=== PATIENT | female | born 2000 | race Caucasian/White ===

== ENCOUNTER 2023-01-20 22:25 | Emergency (ER) | payer OTHER, SELFPAY ==
[2023-01-20 22:27] VITALS: BP 126/76; PULSE 93; RESP 20; TEMP 36.6; O2SAT 100
[2023-01-20] MEDS: TETANUS,DIPHTHERIA,AC PERTUSSIS ADULT (0.5 ML) BOOSTRIX IM (23:18)
--- NOTE | 2023-01-21 00:50 | ED.WOUNDLAC ---
HPI - Wound/Laceration General Chief Complaint: Wound/Laceration Stated Complaint: I dropped a knife on my foot Time Seen by Provider: 01/20/23 22:42 Source: patient Mode of arrival: ambulatory Limitations: no limitations History of Present Illness HPI narrative: Patient is a 22-year-old female who presents to the ED with report of a laceration to her right foot between her second and third toes. Patient reports she was loading dishes into a [employer] tonight and dropped a knife. The knife dropped onto her R foot. She sustained a laceration. She denies any other injuries. Denies significant pain. Denies numbness or tingling. Tetanus unknown. Related Data Allergies Allergy/AdvReac Type Severity Reaction Status Date / Time No Known Allergies Allergy Verified 01/20/23 22:30 Review of Systems Review of Systems: CONSTITUTIONAL: Denies fever, chills, or sweats. SKIN: See HPI. MUSCULOSKELETAL: See HPI. NEUROLOGIC: Denies tingling, numbness, or weakness. All systems reviewed & are unremarkable except as noted in HPI and below Exam Narrative: GENERAL: Well appearing, well-nourished, non-toxic, in no acute distress. HEAD: Normocephalic, atraumatic. NECK: Supple. No adenopathy, no masses. RESPIRATORY: Airway patent, respirations nonlabored. CARDIOVASCULAR: Regular rate and rhythm without murmurs, rubs, or gallops. Pedal pulses 2+ and equal bilaterally. MUSCULOSKELETAL: Moves all extremities. 1cm horizontal linear laceration to R dorsal foot in proximal webspace between 2nd and 3rd toes. No active bleeding. Sensation intact. No tenderness throughout toes. SKIN: Warm, dry, normal color. No rashes. NEURO: A&O X3. Speech clear. Cranial nerves II-XII grossly intact. Steady gait. No ataxic movements. PSYCHIATRIC: Appropriate mood and affect. Normal interaction. Course Vital Signs Vital signs: Vital Signs Temperature 98 F 01/20/23 22:27 Pulse Rate 93 01/20/23 22:27 Respiratory Rate 20 01/20/23 22:27 Blood Pressure 126/76 01/20/23 22:27 Pulse Oximetry 100 01/20/23 22:27 Oxygen Delivery Room Air 01/20/23 22:27 Temperature 98 F 01/20/23 22:27 Pulse Rate 93 01/20/23 22:27 Respiratory Rate 20 01/20/23 22:27 Blood Pressure 126/76 01/20/23 22:27 Pulse Oximetry 100 01/20/23 22:27 Oxygen Delivery Room Air 01/20/23 22:27 Procedures Laceration Laceration 1: Date: 01/21/23 Time: 01:00 Site: lower extremity (foot) Side (If applicable): right Size (cm): 1 Description: linear Depth: simple, single layer Local Anesthetic: lidocaine 1% Amount of anesthesia used (mL): 3 Pre-repair: wound explored, irrigated and irrigated extensively ====== Skin Level ====== Skin layer closed with: nylon Size (cm): 5-0 Number of sutures: 3 Technique: simple, interrupted ====== Subcutaneous Layer ====== ====== Muscle Layer ====== ====== Tendon Layer ====== MDM - Wound/Laceration MDM Narrative Medical decision making narrative: Laceration repaired without complications. Tetanus updated. Patient given wound care instructions and reasons to return. Medical Records Attestation: I reviewed the patient's medical records. Discharge Plan Discharge Clinical Impression: Laceration of right foot Qualifiers: Encounter type: initial encounter Qualified Code(s): S91.311A - Laceration without foreign body, right foot, initial encounter Patient Disposition: Home, Self-Care Condition: Stable Instructions: Antibiotic Form, Care For Your Stitches (ED), Laceration (ED) Additional Instructions: Return to the ED or visit an urgent care or your PCP for follow-up and wound check/suture removal in 10 to 14 days. Keep the wound as dry as possible for 24 hours. You may remove the bandage after 24 hours and wash with simple soap and water, but do not scrub. Re-bandage if wearing shoes. Retu
[2023-01-21] MEDS: LIDOCAINE HCL 1% LOCAL INJ 10 ML VIAL 5 ML INFILTRATE (01:50)
[2023-01-21 02:14] VITALS: BP 111/72; PULSE 71; RESP 15; O2SAT 99
== END 2023-01-21 02:17 | disposition home or self-care (01) ==
PROVIDERS: Emergency Provider Physician Assistant
DX: S91.311A Laceration without foreign body, right foot, initial encounter (principal); Z23 Encounter for immunization; W26.0XXA Contact with knife, initial encounter
CPT/HCPCS: 12001; 90471; 90715; 99282